=== PATIENT | female | born 1965 | race Caucasian/White ===

== ENCOUNTER 2018-08-09 03:49 | Emergency (ER) | payer BC ==
[2018-08-09] MEDS ORDERED: PEROXIDE 3% ONE (04:17)
[2018-08-09] MEDS ORDERED: Sodium Chloride 0.9% 1000 ML 1,000 ML IV SCH (04:30)
[2018-08-09] MEDS ORDERED: solu-MEDROL 125 MG IV ONE (04:31)
[2018-08-09] MEDS ORDERED: Levofloxacin 500MG/100ML D5W 500 MG/100 ML BAG IV STA (04:32)
[2018-08-09] MEDS ORDERED: Zofran 4 MG/2 ML VIAL IV ONE (04:33)
[2018-08-09] MEDS ORDERED: solu-MEDROL 125 MG ONE (04:34)
[2018-08-09] MEDS ORDERED: Sodium Chloride 0.9% 1000 ML 1,000 ML ONE (04:34)
[2018-08-09] MEDS ORDERED: DUONEB 0.5-3 MG/3 ml Neb IH ONE ×2 (04:34→04:44)
[2018-08-09] MEDS ORDERED: SUBLIMAZE 100 MCG/2 ML IV ONE (04:34)
[2018-08-09] MEDS ORDERED: PROVENTIL Solution 2.5 MG/0.5 ML IH SCH (04:46)
[2018-08-09] MEDS ORDERED: PROVENTIL 2.5 MG/3 ML NEB IH ONE (04:46)
--- NOTE | 2018-08-09 04:46 | ERPHSYRPT ---
- History of Present Illness Time Seen by Provider: 08/09/18 04:05 Source: patient Exam Limitations: clinical condition Patient Subjective Stated Complaint: pt is alert and oriented. pt is ambulatory with a steady gait. pt comes in with c/o shortness of breath. pt states she has chest pain with coughing but denies n/v, lightheadedness, dizziness, or other cardiac symptoms. pt states she believes she had the flu earlier in the week and began recovering from that on saturday and has been increasingly sob since then. pt lung sounds are clear bilat throughout. pt is breathing at a normal rate and depth but states she feels sob. pt skin pwd. Triage Nursing Assessment: see above Physician History: PATIENT COMPLAINS OF A PRODUCTIVE COUGH, FEVER, CHILLS EARLIER THIS WEEK WHICH HAS PROGRESSED TO DIFFICULTY BREATHING, LEFT SIDED CHEST PAINS UPON INSPIRATION AND EXERTIONAL DYSPNEA Timing/Duration: day(s) Activities at Onset: none Severity of Dyspnea-Max: moderate Severity of Dyspnea-Current: moderate Possible Cause: occasional episodes Modifying Factors: Improves With: activity, coughing, deep breath Associated Symptoms: chest pain/discomfort, painful breathing, productive cough Allergies/Adverse Reactions: ibuprofen [From Motrin] Allergy (Verified 08/09/18 04:05) Iodinated Contrast- Oral and IV Dye Allergy (Verified 08/09/18 04:44) Penicillins Allergy (Verified 08/09/18 04:05) Home Medications: Methylphenidate HCl [Metadate ER] 30 mg PO DAILY 08/09/18 [History] Montelukast Sodium 10 mg [Singulair 10 MG] 10 mg PO DAILY 08/09/18 [History] Sertraline HCl 50 mg [Zoloft 50 mg Tablet] 100 mg PO BID 08/09/18 [History] Hx Influenza Vaccination/Date Given: No Immunizations Up to Date: Yes - Review of Systems Constitutional: No Fever, No Chills Eyes: No Symptoms Ears, Nose, & Throat: No Symptoms Respiratory: Cough, Dyspnea, Dyspnea on Exertion (TOLBERT) Cardiac: Chest Pain (LEFT SIDED SHARP PAINS UPON INSPIRATION), No Edema, No Syncope Abdominal/Gastrointestinal: No Symptoms, No Abdominal Pain, No Nausea, No Vomiting, No Diarrhea Genitourinary Symptoms: No Symptoms, No Dysuria Musculoskeletal: No Symptoms, No Back Pain, No Neck Pain Skin: No Rash Neurological: No Symptoms, No Dizziness, No Focal Weakness, No Sensory Changes Psychological: No Symptoms Endocrine: No Symptoms All Other Systems: Reviewed and Negative - Past Medical History Pertinent Past Medical History: Yes Neurological History: No Pertinent History ENT History: No Pertinent History Cardiac History: Other Respiratory History: No Pertinent History Endocrine Medical History: No Pertinent History Musculoskeletal History: No Pertinent History GI Medical History: No Pertinent History History: No Pertinent History Psycho-Social History: No Pertinent History Female Reproductive Disorders: Other Other Medical History: uterine fibroids, mitral valve prolapse - Past Surgical History Past Surgical History: Yes Neuro Surgical History: No Pertinent History Cardiac: Other Respiratory: No Pertinent History Gastrointestinal: No Pertinent History Genitourinary: No Pertinent History Musculoskeletal: No Pertinent History Female Surgical History: Hysterectomy, Other Other Surgical History: partial hysterectomy, sinus surgery, right elbow surgery. - Social History Smoking Status: Current every day smoker How long have you smoked: 25 years Drug Use: none - Female History Hx Now: No - Nursing Vital Signs Nursing Vital Signs: Initial Vital Signs Pulse Rate 78 08/09/18 03:57 Respiratory Rate 20 08/09/18 03:57 Blood Pressure 140/80 08/09/18 03:57 O2 Sat by Pulse Oximetry 98 08/09/18 03:57 Pain Scale Pain Intensity 5 - Physical Exam General Appearance: no apparent distress, alert Eye Exam: PERRL/EOMI Neck Exam: normal inspection, supple Respiratory Exam: chest tenderness, wheezing Cardiovascular/Chest Exam: normal heart sounds, regular rate/rhythm Abdominal/Gastrointestinal Exam: soft, No tenderness, No distention, No mass Extremity Exam: non-tender, normal range of motion, normal inspection, no calf tenderness, no pedal edema Peripheral Pulses Exam: carotid (R): 2+, carotid (L): 2+, femoral (R): 2+, femoral (L): 2+, dorsalis-pedis (R): 2+, dorsalis-pedis (L): 2+ Neurologic Exam: alert, oriented x 3, nml cerebellar function Skin Exam: normal color, warm, No dry SpO2 Interpretation: normal SpO2: 98 - Course EKG Interpreted by Me: RATE, Sinus Rhythm, NORMAL AXIS (RATE 77 WITH INVERTED P WAVES) - Radiology Exams Chest X-ray Interpretation: Interpreted by me, No Infiltrates (HYPERINFLATION, COPD, FLAT DIAPHRAMS) Ordered Tests: Active Orders 24 hr Category Date Time Status [place] STAT Care 08/09/18 04:29 Active EKG-ER Only STAT Care 08/09/18 04:29 Active IV Insertion STAT Care 08/09/18 04:29 Active Oxygen-ED Only Nasal Cannula 2 lpm Care 08/09/18 04:29 Active CHEST 1 VIEW (PORTABLE) Stat Exams 08/09/18 04:29 Taken BLOOD CULTURE Stat Lab 08/09/18 04:49 Received CBC W DIFF Stat Lab 08/09/18 04:40 Completed CMP Stat Lab 08/09/18 04:40 Completed D-DIMER QUANTITATION Stat Lab 08/09/18 04:40 Completed PROTIME WITH INR Stat Lab 08/09/18 04:40 Completed TROPONIN Q3H Lab 08/09/18 04:49 Completed TROPONIN Q3H Lab 08/09/18 07:30 Ordered TROPONIN Q3H Lab 08/09/18 10:30 Ordered TROPONIN Q3H Lab 08/09/18 13:30 Ordered TROPONIN Q3H Lab 08/09/18 16:30 Ordered Peak Expiratory Flow Rate DAILY RT 08/09/18 04:50 Active Respiratory Nebulizer STAT RT 08/09/18 04:34 Completed Respiratory Nebulizer STAT RT 08/09/18 04:49 Completed Respiratory Therapy Assessment DAILY RT 08/09/18 04:50 Active Medication Summary Generic Name Dose Route Start Last Admin Trade Name Freq PRN Reason Stop Dose Admin Albuterol Sulfate 10 mg 08/09/18 04:46 08/09/18 05:49 Proventil Solution 2.5 Mg/0.5 Ml IH 09/08/18 04:45 10 mg UD DAVON Administration Sodium Chloride 1,000 mls @ 200 mls/hr 08/09/18 04:30 08/09/18 04:43 Sodium Chloride 0.9% 1000 Ml IV 09/08/18 04:29 200 mls/hr .Q5H DAVON Administration Discontinued Medications Generic Name Dose Route Start Last Admin Trade Name Freq PRN Reason Stop Dose Admin Albuterol Sulfate 10 mg 08/09/18 04:46 08/09/18 05:41 Proventil 2.5 Mg/3 Ml Neb IH 08/09/18 04:47 Not Given STAT ONE Albuterol/Ipratropium 3 ml 08/09/18 04:34 08/09/18 04:46 Duoneb 0.5-3 Mg/3 Ml Neb IH 08/09/18 04:35 3 ml STAT ONE Administration Albuterol/Ipratropium Confirm 08/09/18 04:44 Duoneb 0.5-3 Mg/3 Ml Neb Administered 08/09/18 04:45 Dose 3 ml IH .STK-MED ONE Fentanyl Citrate 50 mcg 08/09/18 04:34 08/09/18 04:58 Sublimaze 100 Mcg/2 Ml IV 08/09/18 04:35 50 mcg STAT ONE Administration Fentanyl Citrate Confirm 08/09/18 04:47 Sublimaze 100 Mcg/2 Ml Administered 08/09/18 04:48 Dose 100 mcg .ROUTE .STK-MED ONE Hydrogen Peroxide Confirm 08/09/18 04:17 Peroxide 3% Administered 08/09/18 04:18 Dose 237 ml .ROUTE .STK-MED ONE Levofloxacin/Dextrose 500 mg in 100 mls @ 100 mls/hr 08/09/18 04:32 08/09/18 04:58 Levofloxacin 500mg/100ml D5w IV 08/09/18 05:31 100 mls/hr STAT STA 100 mls/hr Administration Levofloxacin/Dextrose Confirm 08/09/18 04:48 Levofloxacin 500mg/100ml D5w Administered 08/09/18 04:49 Dose 500 mg in 100 mls @ ud IV .STK-MED ONE Methylprednisolone Sodium Succinate 125 mg 08/09/18 04:31 08/09/18 04:43 Solu-Medrol 125 Mg IV 08/09/18 04:32 125 mg STAT ONE Administration Methylprednisolone Sodium Succinate Confirm 08/09/18 04:34 Solu-Medrol 125 Mg Administered 08/09/18 04:35 Dose 125 mg .ROUTE .STK-MED ONE Ondansetron HCl 4 mg 08/09/18 04:33 08/09/18 04:58 Zofran 4 Mg/2 Ml Vial IV 08/09/18 04:34 4 mg STAT ONE Administration Ondansetron HCl Confirm 08/09/18 04:47 Zofran 4 Mg/2 Ml Vial Administered 08/09/18 04:48 Dose 4 mg .ROUTE .STK-MED ONE Lab/Rad Data: Laboratory Result Diagrams 08/09/18 04:40 08/09/18 04:40 Laboratory Results 08/09/18 08/09/18 08/09/18 Range/Units 04:49 04:49 04:40 WBC (4.0-10.5) K/mm3 RBC (4.1-5.4) M/mm3 Hgb (12.0-16.0) gm/dl Hct (35-47) % MCV (78-100) fl MCH (26-32) pg MCHC (32-36) g/dl RDW (11.5-14.0) % Plt Count (150-450) K/mm3 MPV (6-9.5) fl Gran % (36.0-66.0) % Eos # (Auto) (0-0.5) Absolute Lymphs (auto) (1.0-4.6) Absolute Monos (auto) (0.0-1.3) Lymphocytes % (24.0-44.0) % Monocytes % (0.0-12.0) % Eosinophils % (0.00-5.0) % Basophils % (0.0-0.4) % Absolute Granulocytes (1.4-6.9) Basophils # (0-0.4) PT 11.1 (9.95-12.35) SECONDS INR 0.95 (0.8-3.0) D-Dimer 285 (215-500) ng/mL Sodium (137-145) mmol/L Potassium (3.5-5.1) mmol/L Chloride (98-107) mmol/L Carbon Dioxide (22-30) mmol/L Anion Gap (5-15) MEQ/L BUN (7-17) mg/dL Creatinine (0.52-1.04) mg/dL Estimated GFR ML/MIN Glucose (74-106) mg/dL Calcium (8.4-10.2) mg/dL Total Bilirubin (0.2-1.3) mg/dL AST (14-36) U/L ALT (0-35) U/L Alkaline Phosphatase (38-126) U/L Troponin I < 0.012 (0.000-0.034) ng/mL Serum Total Protein (6.3-8.2) g/dL Albumin (3.5-5.0) g/dL Influenza Type A Ag POSITIVE (NEGATIVE) Influenza Type B Ag NEGATIVE (NEGATIVE) RSV (PCR) NEGATIVE (Negative) 08/09/18 08/09/18 Range/Units 04:40 04:40 WBC 11.7 H (4.0-10.5) K/mm3 RBC 4.15 (4.1-5.4) M/mm3 Hgb 13.4 (12.0-16.0) gm/dl Hct 39.7 (35-47) % MCV 95.7 (78-100) fl MCH 32.3 H (26-32) pg MCHC 33.8 (32-36) g/dl RDW 13.4 (11.5-14.0) % Plt Count 285 (150-450) K/mm3 MPV 11.0 H (6-9.5) fl Gran % 74.5 H (36.0-66.0) % Eos # (Auto) 0.04 (0-0.5) Absolute Lymphs (auto) 1.89 (1.0-4.6) Absolute Monos (auto) 1.05 (0.0-1.3) Lymphocytes % 16.1 L (24.0-44.0) % Monocytes % 9.0 (0.0-12.0) % Eosinophils % 0.3 (0.00-5.0) % Basophils % 0.1 (0.0-0.4) % Absolute Granulocytes 8.72 H (1.4-6.9) Basophils # 0.01 (0-0.4) PT (9.95-12.35) SECONDS INR (0.8-3.0) D-Dimer (215-500) ng/mL Sodium 139 (137-145) mmol/L Potassium 4.4 (3.5-5.1) mmol/L Chloride 101 (98-107) mmol/L Carbon Dioxide 29 (22-30) mmol/L Anion Gap 13.6 (5-15) MEQ/L BUN 11 (7-17) mg/dL Creatinine 0.73 (0.52-1.04) mg/dL Estimated GFR > 60.0 ML/MIN Glucose 106 (74-106) mg/dL Calcium 9.4 (8.4-10.2) mg/dL Total Bilirubin 0.70 (0.2-1.3) mg/dL AST 23 (14-36) U/L ALT 17 (0-35) U/L Alkaline Phosphatase 86 (38-126) U/L Troponin I (0.000-0.034) ng/mL Serum Total Protein 7.0 (6.3-8.2) g/dL Albumin 4.3 (3.5-5.0) g/dL Influenza Type A Ag (NEGATIVE) Influenza Type B Ag (NEGATIVE) RSV (PCR) (Negative) - Progress Air Movement: good Progress Note: 08/09/18 06:36 ADMINISTERED DUO NEB AEROSOL TX FOLLOWED BY CONTINUOUS ALBUTEROL 10MG OVER 1 HOUR. SOLUMEDROL 125, LEVAQUIN 500MG IVPB Blood Culture(s) Obtained: Yes Antibiotics given: Yes Counseled pt/family regarding: lab results, diagnosis, need for follow-up - Departure Time of Disposition: 06:35 Departure Disposition: Home Clinical Impression: ACUTE BRONCHITIS WITH BRONCHIOSPASM, INFLUENZA-A Condition: Stable Critical Care Time: No Referrals: DENNYS COTTRELL MD [Primary Care Provider] - Additional Instructions: ULTRAM 50MG EVERY 6 HOURS NEEDED FOR PAIN. ANTIBIOTIC LEVAQUIN 500MG DAILY FOR 10 DAYS. PREDNISONE 20MG, 2 TABLETS DAILY FOR 4 DAYS AND ALBUTEROL NEBULIZER TREATMENTS EVERY 4 HOURS NEEDED, OBTAIN NEBULIZER MACHINE TODAY. CONSULT YOUR PRIMARY CARE PROVIDER FOR FOLLOWUP IN 1 WEEK. RETURN TO EMERGENCY ROOM FOR DIFFICULTY BREATHING OR SHORTNESS OF BREATH, Prescriptions: Albuterol 2.5 mg/3 ml Neb [Proventil 2.5 mg/3 ml Neb] 2.5 mg IH Q4HPRN PRN #30 neb PRN Reason: DIFFICULTY BREATHING Tramadol HCl 50 mg [Ultram 50 mg] 50 mg PO Q6HPRN PRN #16 tablet PRN Reason: Pain Levofloxacin [Levaquin] 500 mg PO DAILY #10 tablet Prednisone 20 mg [Deltasone 20 mg] 2 tab PO DAILY #8 tablet
[2018-08-09] MEDS ORDERED: Zofran 4 MG/2 ML VIAL ONE (04:47)
[2018-08-09] MEDS ORDERED: SUBLIMAZE 100 MCG/2 ML ONE (04:47)
[2018-08-09] MEDS ORDERED: Levofloxacin 500MG/100ML D5W 500 MG/100 ML BAG IV ONE (04:48)
[2018-08-09 04:53] LABS: BASOPHIL % 0.1 % (0.0-0.4); Basophil (Absolute #) 0.01 (0-0.4); Eosinophil % 0.3 % (0.00-5.0); Eosinophil (Absolute #) 0.04 (0-0.5); Granulocyte Absolute (ANC) 8.72 (1.4-6.9); Granulocytes % 74.5 % (36.0-66.0); Hematocrit 39.7 % (35-47); Hemoglobin 13.4 gm/dl (12.0-16.0); Lymphocyte (Absolute #) 1.89 (1.0-4.6); Lymphocytes % 16.1 % (24.0-44.0); Mean Cell Volume 95.7 fl (78-100); Mean Corpuscular Hemoglobin 32.3 pg (26-32); Mean Corpuscular Hgb Concent. 33.8 g/dl (32-36); Monocyte (Absolute #) 1.05 (0.0-1.3); Platelet Count 285 K/mm3 (150-450); Red Blood Count 4.15 M/mm3 (4.1-5.4); Red Cell Distribution Width 13.4 % (11.5-14.0); White Blood Count 11.7 K/mm3 (4.0-10.5)
[2018-08-09 05:09] LABS: INR 0.95 (0.8-3.0); PROTIME 11.1 SECONDS (9.95-12.35)
[2018-08-09 05:12] LABS: ALBUMIN 4.3 g/dL (3.5-5.0); ALKALINE PHOSPHATASE 86 U/L (38-126); ANION GAP 13.6 MEQ/L (5-15); BLOOD UREA NITROGEN 11 mg/dL (7-17); CHLORIDE 101 mmol/L (98-107); Calcium 9.4 mg/dL (8.4-10.2); Carbon Dioxide 29 mmol/L (22-30); Creatinine 1 0.73 mg/dL (0.52-1.04); Glucose 106 mg/dL (74-106); Potassium 4.4 mmol/L (3.5-5.1); SGOT/AST 23 U/L (14-36); SGPT/ALT 17 U/L (0-35); SODIUM 139 mmol/L (137-145)
[2018-08-09 05:27] LABS: INFLUENZA A POSITIVE (NEGATIVE); INFLUENZA B NEGATIVE (NEGATIVE); RESPIRATORY SYNCTIAL VIRUS NEGATIVE (Negative)
[2018-08-09] MEDS ORDERED: Sodium Chloride 3 ML UD NEBULES IH ONE (05:47)
[2018-08-09] MEDS ORDERED: PROVENTIL Solution 2.5 MG/0.5 ML IH ONE (05:47)
[2018-08-09 06:50] VITALS: BP 113/66; PULSE 84; O2SAT 96
--- NOTE | 2018-08-09 07:55 | XRAY ---
Indication: Dyspnea, cough, and flulike symptoms. Comparison: None Portable apical lordotic chest demonstrates minimal left base infiltrate versus atelectasis. Remaining heart, lungs, and bony thorax unremarkable.
== END 2018-08-09 07:00 | disposition home or self-care (01) ==
LOC: ED 03:49
DX: J20.9 Acute bronchitis, unspecified (principal); J98.01 Acute bronchospasm; J10.1 Influenza due to other identified influenza virus with other respiratory manifestations; Z79.899 Other long term (current) drug therapy; I34.1 Nonrheumatic mitral (valve) prolapse
CPT/HCPCS: 36415; 71045; 80053; 84484; 85025; 85379; 85610; 87040; 87631; 93005; 93041; 94150; 94640; 96360; 96361; 96365; 96374; 96375; 99284; J1956; J2405; J2930; J3010; A9270-GY